=== PATIENT | male | born 1995 | race Caucasian/White ===

== ENCOUNTER 2017-02-02 19:38 | Emergency (ER) | payer OTHER ==
[2017-02-02 19:45] VITALS: BP 132/73; PULSE 96; RESP 17; TEMP 98.1; O2SAT 95
--- NOTE | 2017-02-02 19:50 | EDPHY ---
H & P Stated Complaint: Ingrown hair with swelling on left cheek. - Personal History Current Tetanus/Diphtheria Vaccine: Unsure Current Tetanus Diphtheria and Acellular Pertussis (TDAP): Unsure - Medical/Surgical History Hx Asthma: No Hx Chronic Respiratory Disease: No Hx Diabetes: No Hx Cardiac Disease: No Hx Renal Disease: No Hx Cirrhosis: No Hx Alcoholism: No Hx HIV/AIDS: No Hx Splenectomy or Spleen Trauma: No Other PMH: Denies. - Social History Smoking Status: Never smoked Time Seen by Provider: 02/02/17 19:49 Constitutional: Initial Vital Signs Temperature (C) 36.7 C 02/02/17 19:40 Heart Rate 96 02/02/17 19:40 Respiratory Rate 17 02/02/17 19:40 Blood Pressure 132/73 H 02/02/17 19:40 O2 Sat (%) 95 02/02/17 19:40 O2 Delivery Mode Room Air Allergies/Adverse Reactions: No Known Allergies Allergy (Unverified 02/02/17 19:45) Home Medications: Medication Instructions Recorded Sulfamethox/Tmp 800/160 mg 1 tab PO BID #14 tab 02/02/17 [Bactrim Ds] Medical Decision Making Procedures: Procedure: Abscess drainage. I was asked by Dr Rosas to incise and drain left cheek abscess. The patient's abscess was located on the left cheek. I obtained verbal consent from the patient to drain the abscess who was informed about the possibility of bleeding and pain. Prepped and draped in normal sterile fashion. Area anesthetized with 1% lidocaine with epinephrine. The abscess was incised with a #11 scalpel and a mild amount of purulent drainage was expressed. I irrigated the wound. The patient tolerated the procedure well. The procedure was performed by myself. (Kevyn Rueda) ED Course/Re-evaluation: CHIEF COMPLAINT: Abscess on the left cheek HISTORY OF PRESENT ILLNESS: The patient is a healthy 21 y/o male complaining of left cheek abscess. He noticed swelling in his cheek about a week ago and presumed it was due to an ingrown hair. The abscess continued to grow in size and became red and inflamed. REVIEW OF SYSTEMS: A 10 point review of systems was performed and is negative with the exception of the elements mentioned in the history of present illness. PHYSICAL EXAM: HR, BP, O2 Sat, RR. Temp noted General Appearance: Alert, well hydrated, appropriate, and non-toxic appearing. Head: Atraumatic without scalp tenderness or obvious injury Eyes: Pupils equal, round, reactive to light and accommodation, EOMI, no trauma , no injection. Nose: Atraumatic, no rhinorrhea, clear. Throat: There is no erythema or exudates, no lesions, normal tonsils, mucus membranes moist. Neck: Supple, 2+ carotid upstroke, nontender, no lymphadenopathy. Neurological: Alert, appropriate, and interactive. Skin: Cutaneous abscess on the left cheek. No rashes, good turgor, no nodules on palpation. Past medical history: Denies Past surgical history: Denies Family history: Non-contributory Social history: Non-smoker DIAGNOSTICS/PROCEDURES/CRITICAL CARE TIME: DIFFERENTIAL DIAGNOSIS: The differential diagnosis for this patient's abscess included but is not limited to acne, ingrown hair, and infection MEDICAL DECISION MAKING: The patient is a healthy 21 y/o male with a abscess on his left cheek. ON exam it appears to be a cutaneous abscess. Plan for drainage and discharge with a prescription for antibiotics if needed. (Storm Rosas) Departure - Departure Disposition: Home, Routine, Self-Care Clinical Impression: cutaneous abscess of cheek Condition: Good Instructions: Abscess (ED) Additional Instructions: 1. If redness or swelling continues tomorrow take antibiotics as directed and complete the entire course. 2. Return to the ED for worsening of condition. Referrals: [facility] [Other] - As per Instructions Prescriptions: Sulfamethox/Tmp 800/160 mg [Bactrim Ds] 1 tab PO BID #14 tab Report Scribed for: Storm Rosas Report Scribed by: Sharon De Santiago Date of Report: 02/02/17 Time of Report: 20:10
== END 2017-02-02 20:15 | disposition home or self-care (01) ==
PROC: 0H91XZZ Drainage of Face Skin, External Approach (ICD-10-PCS; principal; 2017-02-02)
DX: L02.01 Cutaneous abscess of face (principal)